=== PATIENT | female | born 1955 | race Two or more races ===

== ENCOUNTER 2024-08-10 11:01 | Inpatient (IN) | payer MEDICARE, OTHER ==
[~2024-08-10] VITALS: Ht 157.5 cm; Wt 73.1 kg
--- NOTE | 2024-08-10 11:13 | ECG ---
[facility] Test Date: 2024-08-10 Test Time: 11:11:39 Pat Name: PRINCE WRIGHT Department: ER Room: 0272T Gender: F Engineer Third Assistant: PATRICIA : 1955 Requested By: CECE JAQUEZ Order Number: [id number] Reading MD: Lefty Lee Measurements Intervals [place] Rate: 71 P: 31 CT: 156 QRS: 19 QRSD: 87 T: 6 QT: 394 QTc: 429 Interpretive Statements Sinus rhythm Probable anteroseptal infarct, old Borderline T abnormalities, inferior leads Baseline wander in lead(s) II,III,aVR,aVL,aVF Electronically Signed On 08-16-2024 16:53:12 PST by Lefty Lee Please click the below link to view image of tracing.
[2024-08-10 11:36] LABS: Basophils # (auto) 0.1 10 ^3/uL (0-0.2); Basophils % (auto) 0.8 % (0.0-2.0); Eosinophils # (auto) 0 10 ^3/uL (0-0.8); Eosinophils % (auto) 0.3 % (0.0-7.0); Hematocrit 40.8 % (36.0-46.0); Hemoglobin 13.6 g/dL (12.2-16.2); Lymphocytes % (auto) 8.8 % (10.0-50.0); Mean Corpuscular Hemoglobin 29.3 pg (28.0-32.0); Mean Corpuscular Hgb Conc. 33.3 g/dL (32.0-36.0); Mean Corpuscular Volume 87.8 fL (80.0-100.0); Monocytes # (auto) 0.3 10 ^3/uL (0-1.3); Monocytes % (auto) 2.7 % (0.0-12.0); Neutrophils # (auto) 9.6 10 ^3/uL (1.6-8.6); Neutrophils % (auto) 87.4 % (37.0-80.0); Platelet Count (auto) 288 10^3/uL (140-450); Red Blood Cells 4.65 10^6/uL (4.0-5.20); Red Cell Distribution Width 14.5 % (11.8-14.3)
[2024-08-10 12:25] LABS: Alanine Aminotransferase 30 U/L (7-40); Alkaline Phosphatase 96 U/L (46-116); Anion Gap 9 (5-15); Aspartate Aminotransferase 27 U/L (13-40); BUN/Creatinine Ratio 20.7 (10.0-20.0); Blood Urea Nitrogen 18 mg/dL (9-23); Calcium 9.7 mg/dL (8.7-10.4); Carbon Dioxide 26 mmol/L (20-31); Potassium 4.3 mmol/L (3.5-5.1); Sodium 143 mmol/L (136-145)
[2024-08-10 12:26] LABS: Bilirubin, Total 0.5 mg/dL (0.2-1.0); Total Protein 7.9 g/dL (5.7-8.2)
[2024-08-10 12:35] LABS: Chloride 108 mmol/L (98-107)
[2024-08-10 12:36] LABS: Albumin 4.9 g/dL (3.2-4.8); Glucose 116 mg/dL (74-106)
--- NOTE | 2024-08-10 12:42 | ED.PDOC ---
HPI Comments 69 y.o female presents to the ED via EMS for altered mental status. EMS reports daughter called 911, as the patient has been confused, off balance and having difficulty ambulating and repeating the same sentences for the last 3 days. Normally, the patient is alert and oriented x4. Patient's daughter states today she passed out, was assisted to the ground, and was having nausea and vomiting . On arrival to ED, patient reports a 5 day history of retrosternal chest pain radiating to her left arm. Additionally to this complaint, she also expressing pain to her right shoulder radiating down her arm and RLQ on palpation. She denies any diarrhea or dysuria. Chief Complaint: General Weakness Time Seen by MD: 11:18 Primary Care Provider: UNKNOWN Reviewed Notes: Nurses Notes, Web Content Coordinator Notes, Medications, Allergies Allergies: Coded Allergies: NO KNOWN ALLERGIES (Unverified , 08/10/24) Home Meds Reported Medications Lisinopril (Lisinopril) 20 Mg Tab, 1 TAB PO DAILY 08/10/24 Information Source: Patient, Emergency Med Personnel Mode of Arrival: EMS Severity: Moderate Timing: Days (5) Duration: Since onset Location: Substernal Radiation: Arm (L) Quality: Sharp Onset: At Rest Cardiac Risk Factors: None PE Risk Factors: None History of: MN Modifying Factors: Nothing Associated Signs and Symptoms: SOB Past Medical History PAST MEDICAL HISTORY: CVA, HTN, MN Surgical History: Unobtainable 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: 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 History Family History Family History: Reviewed,noncontributory to illness Social History Smoker: Non-Smoker Alcohol: Denies ETOH Use Drugs: Denies Drug Use Lives In: Home Constitutional: denies: chills, diaphoresis, fatigue, fever, malaise, sweats, weakness, others EENTM: denies: blurred vision, double vision, ear bleeding, ear discharge, ear drainage, ear pain, ear ringing, eye pain, eye redness, hearing loss, mouth pain, mouth swelling, nasal discharge, nose bleeding, nose congestion, nose pain, photophobia, tearing, throat pain, throat swelling, voice changes, others Respiratory: reports: SOB at rest, shortness of breath, SOB with excertion; denies: cough, hemoptysis, orthopnea, stridor, wheezing, others Cardiovascular: reports: chest pain, left arm pain, others (near syncopals ); denies: dizzy spells, diaphoresis, Dyspnea on exertion, edema, irregular heart beat, lightheadedness, palpitations, PND, syncope Gastrointestinal: reports: abdominal pain; denies: abdomen distended, blood streaked bowels, constipated, diarrhea, dysphagia, difficulty swallowing, he matemesis, melena, nausea, poor appetite, poor fluid intake, rectal bleeding, rectal pain, vomiting, others Genitourinary: denies: abnormal vagina bleeding, burning, dyspareunia, dysuria, flank pain, frequency, hematuria, incontinence, pain, , vagina discharge, urgency, others Neurological: denies: dizziness, fainting, headache, left sided numbness, left sided weakness, numbness, paresthesia, pre-existing deficit, right sided numbness, right sided weakness, seizure, speech problems, tingling, tremors, weakness, others Musculoskeletal: reports: others (right shoulder and arm pain); denies: back pain, gout, joint pain, joint swelling, muscle pain, muscle stiffness, neck pain Integumetry: denies: bruises, change in color, change in hair/nails, dryness, laceration, lesions, lumps, rash, wounds, others Allergic/Immunocompromised: denies: Difficulty Healing, Frequent Infections, Hives, Itching, others Hematologic/Lymphatic: denies: anemia, blood clots, easy bleeding, easy bruising, swollen glands, others Endocrine: denies: excessive hunger, excessive sweating, excessive thirst, excessive urination, flushing, intolerance to cold, intolerance to heat, unexplained weight gain, unexplained weight loss, others Psychiatric: denies: anxiety, bipolar disorder, depression, hopeless, panic disorder, schizophrenia, sleepless, suicidal, others All Other Systems: Reviewed and Negative Physical Exam General Appearance: Mild Distress HEENT: PERRL/EOMI, Other (No facial asymmetry, dry mucous membranes) Neck: Full Range of Motion, Normal Inspection Respiratory: Lungs Clear, No Accessory Muscle Use, No Respiratory Distress, Normal Breath Sounds Cardiovascular: No Edema, No JVD, Regular Rate/Rhythm Breast Exam: Deferred Gastrointestinal: RLQ, Soft, Tenderness Genitalia: Deferred Pelvic: Deferred Rectal: Deferred Extremities: Normal inspection, Normal range of motion, Non-tender, No pedal edema Neurologic: Alert (Oriented x3), Normal Affect, Normal Mood, Other (Moves all extremities. No gross focal deficit.) Cerebellar Function: NOT DONE Reflexes: NOT DONE Skin: Dry, Normal Color, Warm Lymphatic: NOT DONE EKG EKG : Comments Sinus rhythm, rate 71, normal intervals, normal axis, possible old anteroseptal infarct, no ST/T changes. Was a procedure done? Was a procedure done?: No CP Differential Dx Differential Diagnosis: Angina, Anxiety / Panic Attack, Heart Failure, MN, Renal Failure Differential Diagnosis: CHF Differential Diagnosis: Angina, Chest Wall Pain, Cholelithiasis, Costochondritis, Pericarditis, Pneumonia Comment CVA, TIA, infection such as UTI, appendicitis, encephalitis or meningitis, sepsis, among others X-Ray, Labs, Meds, VS Vital Signs Date Time Temp Pulse Resp B/P (MAP) Pulse Ox O2 Delivery O2 Flow Rate FiO2 08/10/24 14:01 72 16 166/94 08/10/24 13:51 97.5 72 17 166/94 (118) 99 97.5 08/10/24 13:49 72 17 99 Room Air* 0 21 08/10/24 13:27 98 18 151/76 08/10/24 11:11 71 08/10/24 11:01 97.9 78 18 147/89 (108) 99 Lab Test 08/10/24 13:09 08/10/24 11:24 08/10/24 11:23 08/10/24 11:11 Range/Units Troponin I High Sensitivity < 3 L < 3 L </=34 ng/L Lipase 83 H 12-53 U/L Sodium Level 143 136-145 mmol/L Potassium Level 4.3 3.5-5.1 mmol/L Chloride Level 108 H 98-107 mmol/L Carbon Dioxide Level 26 20-31 mmol/L Anion Gap 9 5-15 Blood Urea Nitrogen 18 9-23 mg/dL Creatinine 0.87 0.550-1.02 mg/dL Glomerular Filtration Rate Calc 72 >90 mL/min BUN/Creatinine Ratio 20.7 H 10.0-20.0 Serum Glucose 116 H 74-106 mg/dL Calcium Level 9.7 8.7-10.4 mg/dL Total Bilirubin 0.5 0.2-1.0 mg/dL Aspartate Amino Transferase (AST) 27 13-40 U/L Alanine Aminotransferase (ALT) 30 7-40 U/L Alkaline Phosphatase 96 46-116 U/L B-Type Natriuretic Peptide 3.01 0-100 pg/mL Total Protein 7.9 5.7-8.2 g/dL Albumin 4.9 H 3.2-4.8 g/dL White Blood Count 11.0 H 4.4-10.8 10^3/uL Red Blood Count 4.65 4.0-5.20 10^6/uL Hemoglobin 13.6 12.2-16.2 g/dL Hematocrit 40.8 36.0-46.0 % Mean Corpuscular Volume 87.8 80.0-100.0 fL Mean Corpuscular Hemoglobin 29.3 28.0-32.0 pg Mean Corpuscular Hemoglobin Concent 33.3 32.0-36.0 g/dL Red Cell Distribution Width 14.5 H 11.8-14.3 % Platelet Count 288 140-450 10^3/uL Mean Platelet Volume 7.8 6.9-10.8 fL Neutrophils (%) (Auto) 87.4 H 37.0-80.0 % Lymphocytes (%) (Auto) 8.8 L 10.0-50.0 % Monocytes (%) (Auto) 2.7 0.0-12.0 % Eosinophils (%) (Auto) 0.3 0.0-7.0 % Basophils (%) (Auto) 0.8 0.0-2.0 % Neutrophils # (Auto) 9.6 H 1.6-8.6 10 ^3/uL Lymphocytes # (Auto) 1.0 0.4-5.4 10 ^3/uL Monocytes # (Auto) 0.3 0-1.3 10 ^3/uL Eosinophils # (Auto) 0 0-0.8 10 ^3/uL Basophils # (Auto) 0.1 0-0.2 10 ^3/uL Nucleated Red Blood Cells 0.0 % Current Medications Medications (Trade) Dose Ordered Sig/Daphne Route Start Time Stop Time Status Last Admin Sodium Chloride 1,000 ml @ 1,000 mls/hr Q1H ONCE IV 08/10/24 11:30 08/10/24 12:29 DC 08/10/24 13:28 Morphine Sulfate 4 mg ONCE ONCE IV 08/10/24 11:30 08/10/24 11:31 DC 08/10/24 13:27 Ondansetron HCl (Zofran) 4 mg ONCE ONCE IV 08/10/24 11:30 08/10/24 11:31 DC 08/10/24 13:26 [place] [address] Ph: [phone] DIAGNOSTIC IMAGING Diagnostic Imaging Report : [id number] Signed PATIENT: AMIE PARKCT: [id number] UNIT: [id number] : 1955 LOC: ER ROOM / BED: / AGE / SEX: 69 / F ADM STATUS: REG ER SERVICE 22 ORDERING PHYSICIAN: VESNA OZUNA MD PROCEDURE(s): CXRP - CHEST PORTABLE REASON: cp ORDER NUMBER(s): [id number], ACCESSION NUMBER(s): [id number] EXAM: XY CHEST PORTABLE HISTORY: cp COMPARISON: None TECHNIQUE: Portable AP view of the chest was performed. FINDINGS: No pneumothorax, consolidative infiltrates, or pulmonary edema. The heart is not enlarged. IMPRESSION: No acute intrathoracic process. ATED BY: WILLIAMS FLORES MD DICTATED DATE/TIME: 08/10/241244 SIGNED BY: WILLIAMS FLORES MD SIGNED DATE/TIME: 08/10/241244 CC: [place] [address] Ph: [phone] DIAGNOSTIC IMAGING Diagnostic Imaging Report : [id number] Signed PATIENT: AMIE PARKCT: [id number] UNIT: [id number] : 1955 LOC: ER ROOM / BED: / AGE / SEX: 69 / F ADM STATUS: REG ER SERVICE 22 ORDERING PHYSICIAN: VESNA OZUNA MD PROCEDURE(s): HWOCT - HEAD WITHOUT CONTRAST REASON: dizzy, off balance ORDER NUMBER(s): [id number], ACCESSION NUMBER(s): [id number] EXAM: CT HEAD WITHOUT CONTRAST INDICATION: dizzy, off balance TECHNIQUE: CT of the head without intravenous contrast. Radiation Dose Information: CT Dose: CTDI volume is 52.39 mGy. Dose-length product is 839.92 mGy*cm The dose indicators for CT are the volume Computed Tomography (CT) Dose Index (CTDIvol) and the Dose Length Product (DLP), and are measured in units of mGy and mGy-cm, respectively. These indicators are not patient dose, but values generated from the CT scanner acquisition factors. The report includes radiation exposure data for exposures received during this examination. COMPARISON: None FINDINGS: There is no evidence of acute intracranial hemorrhage, extra-axial collection, mass effect, midline shift, herniation or hydrocephalus. There is a round 7 mm extra-axial calcified focus along the right parietal convexity (series 2, image 37) with no associated edema in the underlying brain. The ventricles, sulci and cisterns are age appropriate. Cavum septum pellucidum et vergae, a normal variant. The fuentes-white differentiation is intact. Mild scattered mucosal thickening in the paranasal sinuses. The mastoids are clear. The surrounding soft tissues and osseous structures are unremarkable. IMPRESSION: No evidence of acute intracranial abnormalities. Small round 7 mm extra-axial calcification along the right parietal convexity. This may represent a small calcified meningioma. No evidence of edema in the underlying brain. ATED BY: FOREST VILLASEÑOR DO DICTATED DATE/TIME: 08/10/24 1307 SIGNED BY: FOREST VILLASEÑOR DO SIGNED DATE/TIME: 08/10/24 1307 CC: [place] [address] Ph: [phone] DIAGNOSTIC IMAGING Diagnostic Imaging Report : [id number] Signed PATIENT: AMIE PARKCT: [id number] UNIT: [id number] : 1955 LOC: ER ROOM / BED: / AGE / SEX: 69 / F ADM STATUS: REG ER SERVICE 1123 ORDERING PHYSICIAN: VESNA OZUNA MD PROCEDURE(s): ABPL - CT AB PEL WO CON-NO ORAL OR IV REASON: rlq pain n/v ORDER NUMBER(s): [id number], ACCESSION NUMBER(s): [id number] Procedure: CT CT AB PEL WO CON-NO ORAL OR IV 08/10/2024 12:17 PM Indication: rlq pain n/v Comparison Study: None Technique: Axial images were obtained and reformatted in coronal and sagittal planes. All CT scans at this medical facility are performed using dose modulation techniques as appropriate to a performed exam including the following: Automated exposure control was utilized; adjustment of the MA and/or KV according to patient size; and use of iterative reconstruction technique. CT Dose: CTDI volume is 9.43 mGy. Dose-length product is 473.61 mGy*cm FINDINGS: Lower Chest: Unremarkable. Hepatobiliary: Unremarkable. Spleen: Unremarkable. Pancreas: Unremarkable. Adrenal Glands: Unremarkable. tract: The kidneys are normal in size bilaterally without hydronephrosis or nephrolithiasis. The urinary bladder is unremarkable. GI tract: The stomach is grossly normal in appearance. No evidence of small bowel obstruction. Scattered colonic diverticula are noted without evidence of diverticulitis. The appendix is normal. Lymphatics: No mesenteric, retroperitoneal or periportal lymphadenopathy. Vasculature: The abdominal aorta is normal in in caliber. Pelvic Organs: Unremarkable Bones/soft tissues: No acute abnormality. Other: None. IMPRESSION: 1. No CT evidence for acute intra-abdominal or intrapelvic process. 2. Scattered colonic diverticula without diverticulitis. ATED BY: MARCIA CONTRERAS MD DICTATED DATE/TIME: 08/10/24 1347 SIGNED BY: MRACIA CONTRERAS MD SIGNED DATE/TIME: 08/10/24 1347 CC: X-Ray, Labs, Meds, VS Comment 69-year-old female with a history of CVA, mi and hypertension presenting with altered mental status, syncope, nausea, vomiting, chest pain and right lower quadrant pain Vitals remarkable for BP 147/89 Exam remarkable for right lower quadrant tenderness to palpation Rhythm strip independently interpreted by me: Sinus rhythm, rate 78, no ectopy. CT head IMPRESSION: No evidence of acute intracranial abnormalities. Small round 7 mm extra-axial calcification along the right parietal convexity. This may represent a small calcified meningioma. No evidence of edema in the underlying brain. Chest x-ray IMPRESSION: No acute intrathoracic process. CT abdomen and pelvis IMPRESSION: 1. No CT evidence for acute intra-abdominal or intrapelvic process. 2. Scattered colonic diverticula without diverticulitis. CBC remarkable for WBC 11, , BNP and troponins unremarkable, lipase elevated at 83, UA pending Patient treated with the following in the ED: 1 L 0.9 normal saline IV bolus, morphine 4 mg IV, Zofran 4 mg IV Plan is to admit the patient for neurology, Cardiology and GI evaluation Time of 1ST Reevaluation: 12:36 Reevaluation 1ST: Unchanged Patient Education/Counseling: Diagnosis, Treatment, Prognosis Family Education/Counseling: No Family Present Departure 1 Departure Time of Disposition: 16:00 Impression: Primary Impression: Metabolic encephalopathy Additional Impression: Acute pancreatitis Qualified Codes: K85.90 - Acute pancreatitis without necrosis or infection, unspecified Disposition: ADMITTED INPATIENT Admit to: Tele Condition: Guarded Critical Care Note Critical Care Time?: No Stability Stability form required: No Heart Score Heart Score: Heart Score Response (Comments) Value History Moderate Suspicious 1 EKG Normal 0 Age >65 2 Risk Factors >3 or Hx ASHD 2 Troponin Normal limit 0 Total 5 I personally scribed for VESNA OZUNA MD ([email or web address]) on 08/10/24 at 12:42. Electronically submitted by Pamela Duong ([facility]). I personally scribed for VESNA OZUNA MD ([email or web address]) on 08/10/24 at 13:06. Electronically submitted by Pamela Duong ([facility]). I personally scribed for VESNA OZUNA MD ([email or web address]) on 08/10/24 at 15:11. Electronically submitted by Pamela Duong ([facility]). VESNA OZUNA MD Aug 10, 2024 12:42
--- NOTE | 2024-08-10 12:48 | DVH ---
EXAM: XY CHEST PORTABLE HISTORY: cp COMPARISON: None TECHNIQUE: Portable AP view of the chest was performed. FINDINGS: No pneumothorax, consolidative infiltrates, or pulmonary edema. The heart is not enlarged. IMPRESSION: No acute intrathoracic process.
--- NOTE | 2024-08-10 13:09 | DVH ---
EXAM: CT HEAD WITHOUT CONTRAST INDICATION: dizzy, off balance TECHNIQUE: CT of the head without intravenous contrast. Radiation Dose Information: CT Dose: CTDI volume is 52.39 mGy. Dose-length product is 839.92 mGy*cm The dose indicators for CT are the volume Computed Tomography (CT) Dose Index (CTDIvol) and the Dose Length Product (DLP), and are measured in units of mGy and mGy-cm, respectively. These indicators are not patient dose, but values generated from the CT scanner acquisition factors. The report includes radiation exposure data for exposures received during this examination. COMPARISON: None FINDINGS: There is no evidence of acute intracranial hemorrhage, extra-axial collection, mass effect, midline s hift, herniation or hydrocephalus. There is a round 7 mm extra-axial calcified focus along the right parietal convexity (series 2, image 37) with no associated edema in the underlying brain. The ventricles, sulci and cisterns are age appropriate. Cavum septum pellucidum et vergae, a normal v ariant. The fuentes-white differentiation is intact. Mild scattered mucosal thickening in the paranasal sinuses. The mastoids are clear. The surrounding soft tissues and osseous structures are unremarkable. IMPRESSION: No evidence of acute intracranial abnormalities. Small round 7 mm extra-axial calcification along the right parietal convexity. This may represent a s mall calcified meningioma. No evidence of edema in the underlying brain.
[2024-08-10] MEDS: ONDANSETRON HCL 4 MG/2 ML VIAL IV ONE (13:26)
[2024-08-10] MEDS: MORPHINE SULFATE 4 MG/ML SYR/VIAL IV ONE (13:27)
[2024-08-10] MEDS: SODIUM CHLORIDE 0.9% 1,000 ML IV ONE (13:28)
[2024-08-10 13:49] VITALS: PULSE 72; RESP 17; O2SAT 99
--- NOTE | 2024-08-10 13:50 | DVH ---
Procedure: CT CT AB PEL WO CON-NO ORAL OR IV 08/10/2024 12:17 PM Indication: rlq pain n/v Comparison Study: None Technique: Axial images were obtained and reformatted in coronal and sagittal planes. All CT scans at this medical facility are performed using dose modulation techniques as appropriate t o a performed exam including the following: Automated exposure control was utilized; adjustment of th e MA and/or KV according to patient size; and use of iterative reconstruction technique. CT Dose: CTDI volume is 9.43 mGy. Dose-length product is 473.61 mGy*cm FINDINGS: Lower Chest: Unremarkable. Hepatobiliary: Unremarkable. Spleen: Unremarkable. Pancreas: Unremarkable. Adrenal Glands: Unremarkable. tract: The kidneys are normal in size bilaterally without hydronephrosis or nephrolithiasis. The urinary bladder is unremarkable. GI tract: The stomach is grossly normal in appearance. No evidence of small bowel obstruction. Scatte red colonic diverticula are noted without evidence of diverticulitis. The appendix is normal. Lymphatics: No mesenteric, retroperitoneal or periportal lymphadenopathy. Vasculature: The abdominal aorta is normal in in caliber. Pelvic Organs: Unremarkable Bones/soft tissues: No acute abnormality. Other: None. IMPRESSION: 1. No CT evidence for acute intra-abdominal or intrapelvic process. 2. Scattered colonic diverticula without diverticulitis.
[2024-08-10] MEDS ORDERED: LISI20TA56 PO (15:21)
--- NOTE | 2024-08-10 15:27 | DVHHP2 ---
History of Present Illness Reason for Visit: Generalized weakness History of Present Illness This 69-year-old female presents to the ED via EMS for ALOC. Upon assessment the patient is alert and oriented but somehow poor historian. Medical records obtained from nursing staff who reports the patient is noted to have altered level of consciousness, confusion, and had syncopal episode associated with nausea and vomiting. The patient currently denies chest pain, shortness of breath, or other acute symptoms. Past Medical History As stated in HPI Past Surgical History Denies Family History Reviewed, non-contributory to the management of this case. Past Social History The patient lives at home, denies smoking, alcohol or illicit drugs abuse. Review of Systems Constitutional: Yes: Weakness, Malaise; No: Fever, Chills, Sweats, Other Eyes: No: Pain, Vision change, Conjunctivae inflammation, Eyelid inflammation, Other, Redness ENT: No: Ear pain, Ear discharge, Nose pain, Nose discharge, Nose congestion, Mouth pain, Mouth swelling, Throat pain, Throat swelling, Other Respiratory: No: Cough, Dry, Shortness of breath, SOB with excertion, Wheezing, Hemoptysis, Pleuritic Pain, Sputum, Wheezing, Other Cardiovascular: No: Chest Pain, Palpitations, Orthopnea, Paroxysmal Noc. Dyspnea, Edema, Lt Headedness, Other Gastrointestinal: No: Nausea, Vomiting, Abdominal Pain, Diarrhea, Constipation, Melena, Hematochezia, Other Genitourinary: No Dysuria, No Frequency, No Incontinence, No Hematuria, No Retention, No Other Musculoskeletal: No: other, neck pain, shoulder pain, arm pain, back pain, hand pain, leg pain, foot pain Skin: No: Rash, Lesions, Jaundice, Bruising, Other Neurological: Weakness, Confusion (Syncope), Other; No: Numbness, Incoordination, Change in speech, Seizures Allergies: Coded Allergies: NO KNOWN ALLERGIES (Unverified , 08/10/24) Exam Vital Signs Vital Signs Date Time Temp Pulse Resp B/P (MAP) Pulse Ox O2 Delivery O2 Flow Rate FiO2 08/10/24 14:01 72 16 166/94 08/10/24 13:51 97.5 99 97.5 08/10/24 13:49 Room Air* 0 21 General Appearance: Alert, mild distress HEENT: Atraumatic, PERRLA, EOMI, Mucous membr. moist/pink Respiratory: Clear to auscultation, Normal air movement Cardiovascular: Regular rate, Normal S1 Abdominal: Normal bowel sounds, Soft, No tenderness Extremities: No clubbing, No cyanosis, No edema, Normal pulses Neuro: Normal gait, Sensation intact Labs/Xrays Labs Test 08/10/24 13:09 08/10/24 11:24 08/10/24 11:23 08/10/24 11:11 Range/Units Troponin I High Sensitivity < 3 L </=34 ng/L Lipase 83 H 12-53 U/L Sodium Level 143 136-145 mmol/L Potassium Level 4.3 3.5-5.1 mmol/L Chloride Level 108 H 98-107 mmol/L Carbon Dioxide Level 26 20-31 mmol/L Anion Gap 9 5-15 Blood Urea Nitrogen 18 9-23 mg/dL Creatinine 0.87 0.550-1.02 mg/dL Glomerular Filtration Rate Calc 72 >90 mL/min BUN/Creatinine Ratio 20.7 H 10.0-20.0 Serum Glucose 116 H 74-106 mg/dL Calcium Level 9.7 8.7-10.4 mg/dL Total Bilirubin 0.5 0.2-1.0 mg/dL Aspartate Amino Transferase (AST) 27 13-40 U/L Alanine Aminotransferase (ALT) 30 7-40 U/L Alkaline Phosphatase 96 46-116 U/L B-Type Natriuretic Peptide 3.01 0-100 pg/mL Total Protein 7.9 5.7-8.2 g/dL Albumin 4.9 H 3.2-4.8 g/dL White Blood Count 11.0 H 4.4-10.8 10^3/uL Red Blood Count 4.65 4.0-5.20 10^6/uL Hemoglobin 13.6 12.2-16.2 g/dL Hematocrit 40.8 36.0-46.0 % Mean Corpuscular Volume 87.8 80.0-100.0 fL Mean Corpuscular Hemoglobin 29.3 28.0-32.0 pg Mean Corpuscular Hemoglobin Concent 33.3 32.0-36.0 g/dL Red Cell Distribution Width 14.5 H 11.8-14.3 % Platelet Count 288 140-450 10^3/uL Mean Platelet Volume 7.8 6.9-10.8 fL Neutrophils (%) (Auto) 87.4 H 37.0-80.0 % Lymphocytes (%) (Auto) 8.8 L 10.0-50.0 % Monocytes (%) (Auto) 2.7 0.0-12.0 % Eosinophils (%) (Auto) 0.3 0.0-7.0 % Basophils (%) (Auto) 0.8 0.0-2.0 % Neutrophils # (Auto) 9.6 H 1.6-8.6 10 ^3/uL Lymphocytes # (Auto) 1.0 0.4-5.4 10 ^3/uL Monocytes # (Auto) 0.3 0-1.3 10 ^3/uL Eosinophils # (Auto) 0 0-0.8 10 ^3/uL Basophils # (Auto) 0.1 0-0.2 10 ^3/uL Nucleated Red Blood Cells 0.0 % PROCEDURE(s): HWOCT - HEAD WITHOUT CONTRAST REASON: dizzy, off balance ORDER NUMBER(s): [id number], ACCESSION NUMBER(s): [id number] EXAM: CT HEAD WITHOUT CONTRAST INDICATION: dizzy, off balance TECHNIQUE: CT of the head without intravenous contrast. Radiation Dose Information: CT Dose: CTDI volume is 52.39 mGy. Dose-length product is 839.92 mGy*cm The dose indicators for CT are the volume Computed Tomography (CT) Dose Index (CTDIvol) and the Dose Length Product (DLP), and are measured in units of mGy and mGy-cm, respectively. These indicators are not patient dose, but values generated from the CT scanner acquisition factors. The report includes radiation exposure data for exposures received during this examination. COMPARISON: None FINDINGS: There is no evidence of acute intracranial hemorrhage, extra-axial collection, mass effect, midline shift, herniation or hydrocephalus. There is a round 7 mm extra-axial calcified focus along the right parietal convexity (series 2, image 37) with no associated edema in the underlying brain. The ventricles, sulci and cisterns are age appropriate. Cavum septum pellucidum et vergae, a normal variant. The fuentes-white differentiation is intact. Mild scattered mucosal thickening in the paranasal sinuses. The mastoids are clear. The surrounding soft tissues and osseous structures are unremarkable. IMPRESSION: No evidence of acute intracranial abnormalities. Assessment/Plan Assessment/Plan # acute metabolic encephalopathy, ?sepsis # Possible syncope and collapse # nausea and vomiting # leukocytosis, rule out UTI # generalized weakness Admit to telemetry unit Echocardiogram Monitor on telemetry IV fluid Antiemetics Empiric antibiotic ceftriaxone Blood and urine culture # hypertension Continue with lisinopril Hydralazine prn # hx of CVA Consider neuro consult given history # hx CAD DVT prophylaxis Medical plan discussed with patient and RN Plan discussed with: Patient My Orders Orders - INDER GERONIMO Procedure Category Date Status Time Admit ADMIT 08/10/24 Verified 15:16 Code Status CODE 08/10/24 Verified 15:16 0.9% Ns 1000 Ml PHA 08/10/24 Verified 15:30 Ondansetron Hcl PHA 08/10/24 Verified (Zofran) 15:30 Enoxaparin Sodium PHA 08/11/24 Verified (Lovenox) 10:00 Fall Risk Precautions TREASURE 08/10/[address] 15:16 Complete Blood Count LAB 08/11/24 Verified 04:00 Comprehensive LAB 08/11/24 Verified Metabolic Panel 04:00 Cardiac DIET 08/10/24 Verified Diet-2gna,Lofat,Lochol Dinner Condition: Fair TREASURE 08/10/24 Verified 15:16 Date of Service: Aug 10, 2024 Billing Provider: INDER GERONIMO Common Visit Codes: [id number] INP/OBS CARE (HIGH) INDER GERONIMO Aug 10, 2024 15:27
[2024-08-10] MEDS ORDERED: ONDANSETRON HCL 4 MG/2 ML VIAL IV PRN (15:30)
[2024-08-10] MEDS: SODIUM CHLORIDE 0.9% 1,000 ML IV SCH (15:30)
[2024-08-10] MEDS ORDERED: hydrALAZINE HCL 20 MG/ML VL IV PRN (15:30)
[2024-08-10] MEDS: cefTRIAXone 1GM/50ML D5W 50 ML IV ONE (18:01)
[2024-08-10 19:21] LABS: Urine Bacteria FEW /hpf (None Seen); Urine Blood Negative /uL (Negative); Urine Clarity Clear (Clear); Urine Color Yellow (Yellow); Urine Mucus FEW (None Seen); Urine Protein, UAD Negative (Negative); Urine Specific Gravity 1.026 (1.001-1.035); Urine Squamous Epithelial Cell FEW /hpf (<5); Urine Urobilinogen Normal (Negative); Urine WBC 2 /HPF (0-5)
[2024-08-10 19:45] LABS: Amphetamine Screen, Urine Neg (NEGATIVE); Barbiturate Scree,Urine Neg (NEGATIVE); Benzodiazephine Screen, Urine Neg (NEGATIVE); Cannabinoid Screen, Urine Neg (NEGATIVE); Cocaine Screen, Urine Neg (NEGATIVE); Opiate Scree,Urine Pos (NEGATIVE); Phencyclidine Screen, Urine Neg (NEGATIVE)
[2024-08-10 22:31] VITALS: BP 122/65; PULSE 61; RESP 18; TEMP 98.6; O2SAT 99
[2024-08-11] VITALS (8 sets, daily range): BP systolic 124–155; BP diastolic 55–83; PULSE 56–84; RESP 16–18; TEMP 98.2–98.9; O2SAT 95–99
[2024-08-11] MEDS ORDERED: MORPHINE SULFATE INJ 2 MG/ml SYRG IV PRN (00:45)
[2024-08-11] MEDS: NITROGLYCERIN 0.4 MG SL TAB SL PRN (01:03)
[2024-08-11] MEDS: SODIUM CHLOR 0.9% PF (SALINE LOCK) 10ML VIAL/SYR IV SCH (06:28)
--- NOTE | 2024-08-11 07:28 | ECG ---
[facility] Test Date: 2024-08-11 Test Time: 00:20:22 Pat Name: PRINCE WRIGHT Department: Room: [facility] Gender: F Supervisor Pipelines: cyn : 1955 Requested By: CHARLES CLARK Order Number: [id number] Reading MD: Lefty Lee Measurements Intervals [place] Rate: 59 P: 11 NM: 156 QRS: 22 QRSD: 110 T: 25 QT: 428 QTc: 424 Interpretive Statements Sinus rhythm Probable anteroseptal infarct, old Electronically Signed On 08-12-2024 21:33:41 PST by Lefty Lee Please click the below link to view image of tracing.
[2024-08-11 08:16] LABS: Basophils # (auto) 0 10 ^3/uL (0-0.2); Basophils % (auto) 0.7 % (0.0-2.0); Eosinophils # (auto) 0.2 10 ^3/uL (0-0.8); Eosinophils % (auto) 3.1 % (0.0-7.0); Hematocrit 37.6 % (36.0-46.0); Hemoglobin 12.2 g/dL (12.2-16.2); Lymphocytes # (auto) 1.8 10 ^3/uL (0.4-5.4); Lymphocytes % (auto) 27.7 % (10.0-50.0); Mean Corpuscular Hemoglobin 28.7 pg (28.0-32.0); Mean Corpuscular Hgb Conc. 32.6 g/dL (32.0-36.0); Mean Corpuscular Volume 88.2 fL (80.0-100.0); Monocytes # (auto) 0.4 10 ^3/uL (0-1.3); Monocytes % (auto) 6.1 % (0.0-12.0); Neutrophils # (auto) 4.1 10 ^3/uL (1.6-8.6); Neutrophils % (auto) 62.4 % (37.0-80.0); Nucleated Red Blood Cells % 0.2 %; Platelet Count (auto) 249 10^3/uL (140-450); Red Blood Cells 4.26 10^6/uL (4.0-5.20); Red Cell Distribution Width 14.5 % (11.8-14.3); White Blood Cell 6.6 10^3/uL (4.4-10.8)
[2024-08-11 08:19] LABS: Alanine Aminotransferase 28 U/L (7-40); Alkaline Phosphatase 79 U/L (46-116); Anion Gap 8 (5-15); BUN/Creatinine Ratio 22.1 (10.0-20.0); Blood Urea Nitrogen 17 mg/dL (9-23); Calcium 8.9 mg/dL (8.7-10.4); Carbon Dioxide 24 mmol/L (20-31); Glucose 87 mg/dL (74-106); Potassium 3.6 mmol/L (3.5-5.1); Sodium 141 mmol/L (136-145)
[2024-08-11 08:20] LABS: Albumin 4.2 g/dL (3.2-4.8); Aspartate Aminotransferase 25 U/L (13-40); Bilirubin, Total 0.7 mg/dL (0.2-1.0); Total Protein 6.7 g/dL (5.7-8.2)
[2024-08-11 08:21] LABS: Chloride 109 mmol/L (98-107)
[2024-08-11] MEDS: LISINOPRIL 20 MG TAB PO SCH (09:39)
[2024-08-11] MEDS: cefTRIAXone 1GM/50ML D5W 50 ML IV SCH (09:40)
[2024-08-11] MEDS: ENOXAPARIN SOD 40 MG/0.4 ML SYRINGE SC SCH (09:40)
--- NOTE | 2024-08-11 13:37 | DVHPN2 ---
Subjective 69-year-old female with a history of hypertension and old CVA and history of CAD came with a chief complaint of headache and dizziness and weakness and possible syncope She says she is not able to remember what happened except that she was having dizziness and lightheadedness and headache and then she does not remember happened NS Changes from previous H/P or p: Changes Eyes: No Pain, No Vision change, No Conjunctivae inflammation, No Eyelid inflammation, No Other, No Redness ENT: No Ear pain, No Ear discharge, No Nose pain, No Nose discharge, No Nose congestion, No Mouth pain, No Mouth swelling, No Throat pain, No Throat swelling, No Other Cardiovascular: No Chest Pain, No Palpitations, No Orthopnea, No Paroxysmal Noc. Dyspnea, No Edema, No Lt Headedness, No Other Respiratory: No Cough, No Dry, No Shortness of breath, No SOB with excertion, No Wheezing, No Hemoptysis, No Pleuritic Pain, No Sputum, No Other Gastrointestinal: No Nausea, No Vomiting, No Abdominal Pain, No Diarrhea, No Constipation, No Melena, No Hematochezia, No Other Genitourinary: No Dysuria, No Frequency, No Incontinence, No Hematuria, No Retention, No Other Musculoskeletal: No other, No neck pain, No shoulder pain, No arm pain, No back pain, No hand pain, No leg pain, No foot pain Skin: No Rash, No Lesions, No Jaundice, No Bruising, No Other Objective Vitals Vital Signs Date Time Temp Pulse Resp B/P (MAP) Pulse Ox O2 Delivery O2 Flow Rate FiO2 08/11/24 09:39 126/71 08/11/24 08:42 98.8 56 16 99 98.8 08/10/24 22:31 Room Air* 0 21 Intake/Output Intake and Output 08/11/24 07:00 Intake Total 1100 ml Balance 1100 ml Intake Oral 100 ml IV Total 1000 ml # Voids 1 General Appearance: Alert, Oriented X3, Cooperative, No acute distress Cardiovascular: Regular rate, Normal S1 Abdomen: Normal bowel sounds, No tenderness Extremities: No edema Medications Current Medications Medications Dose Ordered Sig/Daphne Route Start Time Stop Time Status Last Admin Dose Admin Sodium Chloride 1,000 ml @ 60 mls/hr [id number] IV 08/10/24 15:30 08/11/24 09:52 60 MLS/HR Ondansetron HCl 4 mg Q4HP PRN IV 08/10/24 15:30 Enoxaparin Sodium 40 mg DAILY SC 08/11/24 10:00 08/11/24 09:40 40 MG Lisinopril 20 mg DAILY PO 08/11/24 10:00 08/11/24 09:39 20 MG Hydralazine HCl 10 mg Q6HP PRN IV 08/10/24 15:30 Ceftriaxone Sodium 50 ml @ 100 mls/hr DAILY@09 IV 08/11/24 09:00 08/11/24 09:40 100 MLS/HR Nitroglycerin 0.4 mg Q5MINP PRN SL 08/11/24 00:45 08/11/24 01:03 0.4 MG Morphine Sulfate 2 mg Q30M PRN IV 08/11/24 00:45 Sodium Chloride 10 ml Q8HR IV 08/11/24 06:00 08/11/24 06:28 10 ML Laboratory Results Laboratory Tests 08/11/24 07:11 Chemistry Test 08/11/24 07:11 Albumin 4.2 g/dL (3.2-4.8) Calcium Level 8.9 mg/dL (8.7-10.4) Total Protein 6.7 g/dL (5.7-8.2) LFT Test 08/11/24 07:11 Alanine Aminotransferase (ALT) 28 U/L (7-40) Alkaline Phosphatase 79 U/L (46-116) Aspartate Amino Transferase (AST) 25 U/L (13-40) Total Bilirubin 0.7 mg/dL (0.2-1.0) Urinalysis Test 08/10/24 19:10 Urine Color Yellow (Yellow) Urine Clarity Clear (Clear) Urine pH 6.0 (5.0-9.0) Urine Specific [place] 1.026 (1.001-1.035) Urine Protein Negative (Negative) Urine Ketones 1+ (Negative) H Urine Blood Negative /uL (Negative) Urine Nitrite Negative (Negative) Urine Bilirubin Negative (Negative) Urine Urobilinogen Normal mg/dL (Negative) Urine Leukocyte Esterase Negative /uL (Negative) Urine RBC 1 /hpf (0 - 4) Urine Microscopic WBC 2 /HPF (0-5) Urine Squamous Epithelial Cells Few /hpf (<5) Urine Bacteria Few /hpf (None Seen) H Urine Mucus Few (None Seen) Urine Glucose Normal mg/dL (Normal) Microbiology Microbiology Date/Time Source Procedure Growth Status 08/10/24 19:10 Voided Urine Urine Culture - Preliminary Resulted Assessment/Plan Assessment/Plan Syncope Headache Dizziness Hypertension Old CVA History of CAD Meningioma Possible underlying UTI Plan CT scan of the head is negative Chest x-ray is normal Order MRI of the brain no contrast Neurology consult Carotid Doppler Echocardiogram Hydration with IV fluids Rocephin IV Aspirin Full code Advance directives discussed for 18 minute Plan discussed with: Patient My Orders Orders - JAIRON GARCES MD Procedure Category Date Status Time Brain Head Wo Contrast MRI 08/11/24 Verified 13:14 Carotid Duplx W Color US 08/11/24 Verified DOP 13:14 Date of Service: Aug 11, 2024 Billing Provider: JAIRON GARCES MD Common Visit Codes: [id number] INP/OBS CARE(HIGH) Secondary Visit Codes: [id number] CARE PLAN 30 MINUTES JAIRON GARCES MD Aug 11, 2024 13:37
--- NOTE | 2024-08-11 14:42 | DVH ---
Carotid Duplex Date: 08/11/2024 02:12 PM Clinical History: headache Comparison: None Technique: Duplex Doppler evaluation of the extracranial carotid and vertebral arteries including color Doppler and spectral/pulsed waveform analysis was performed. Findings: Velocites and within normal limits. IMPRESSION: No hemodynamically significant stenosis noted in the right carotid system. No hemodynamically significant stenosis noted in the left carotid system. Reference: Radiology 2003; 229:340-346
--- NOTE | 2024-08-11 15:24 | DVH ---
EXAMINATION: MRI BRAIN HEAD WO CONTRAST INDICATION: headache COMPARISON: CT head 08/10/2024 TECHNIQUE: Multiplanar, multisequence magnetic resonance imaging of the brain was performed without t he use of intravenous contrast. FINDINGS: There is no restricted diffusion. The fuentes and white matter signal is age appropriate. Again seen is a small extra-axial calcified nodule along the right lateral frontal lobe probably small calcified me ningioma. There is no evidence of hemorrhage, mass effect or midline shift. There is no hydrocephalus or extra-axial fluid collection. The visualized intracranial vasculature demonstrates appropriate fl ow-voids. The sagittal midline structures appear unremarkable. The craniocervical junction is within normal limits. The calvarium demonstrates normal marrow signal. The paranasal sinuses and mastoid air cells are clear. IMPRESSION: 1. There is no acute intracranial process. HS:Y
[2024-08-11] MEDS: ASPirin 81 mg TAB PO ONE (17:03)
[2024-08-11] MEDS: ACETAMINOPHEN 325 MG TAB PO PRN (17:04)
[2024-08-12 01:00] VITALS: BP 118/72; PULSE 65; RESP 18; TEMP 98.2; O2SAT 95
[2024-08-12 05:00] VITALS: BP 107/71; PULSE 66; RESP 18; TEMP 98.1; O2SAT 98
[2024-08-12 08:00] VITALS: PULSE 72; PULSE 76; RESP 18
[2024-08-12 08:05] LABS: Triglycerides 103 mg/dL (< 150)
[2024-08-12 08:07] LABS: Cholesterol 190 mg/dL (< 200); HDL Cholesterol 40 mg/dL (40-59)
[2024-08-12 08:09] LABS: LDL Cholesterol 137 mg/dL (< 100)
[2024-08-12 08:31] VITALS: BP 130/73; PULSE 72; RESP 18; TEMP 97.9; O2SAT 96
[2024-08-12] MEDS: ASPirin 81 mg TAB PO SCH (09:22)
[2024-08-12] MEDS: IBUPROFEN 800 MG TAB PO ONE (12:00)
--- NOTE | 2024-08-12 12:03 | DVHDS2 ---
Discharge Summary Date of Admission Aug 10, 2024 at 15:16 Date of Discharge: Aug 12, 2024 Labs/Diagnostic Data: Laboratory Results Test 08/12/24 06:02 08/11/24 07:11 08/10/24 19:10 08/10/24 13:09 Triglycerides Level 103 mg/dL (< 150) Cholesterol Level 190 mg/dL (< 200) LDL Cholesterol 137 mg/dL (< 100) HDL Cholesterol 40 mg/dL (40-59) Thyroid Stimulating Hormone (TSH) 1.70 uIU/mL (0.55-4.78) White Blood Count 6.6 10^3/uL (4.4-10.8) Red Blood Count 4.26 10^6/uL (4.0-5.20) Hemoglobin 12.2 g/dL (12.2-16.2) Hematocrit 37.6 % (36.0-46.0) Mean Corpuscular Volume 88.2 fL (80.0-100.0) Mean Corpuscular Hemoglobin 28.7 pg (28.0-32.0) Mean Corpuscular Hemoglobin Concent 32.6 g/dL (32.0-36.0) Red Cell Distribution Width 14.5 % (11.8-14.3) Platelet Count 249 10^3/uL (140-450) Mean Platelet Volume 8.3 fL (6.9-10.8) Neutrophils (%) (Auto) 62.4 % (37.0-80.0) Lymphocytes (%) (Auto) 27.7 % (10.0-50.0) Monocytes (%) (Auto) 6.1 % (0.0-12.0) Eosinophils (%) (Auto) 3.1 % (0.0-7.0) Basophils (%) (Auto) 0.7 % (0.0-2.0) Neutrophils # (Auto) 4.1 10 ^3/uL (1.6-8.6) Lymphocytes # (Auto) 1.8 10 ^3/uL (0.4-5.4) Monocytes # (Auto) 0.4 10 ^3/uL (0-1.3) Eosinophils # (Auto) 0.2 10 ^3/uL (0-0.8) Basophils # (Auto) 0 10 ^3/uL (0-0.2) Nucleated Red Blood Cells 0.2 % Sodium Level 141 mmol/L (136-145) Potassium Level 3.6 mmol/L (3.5-5.1) Chloride Level 109 mmol/L (98-107) Carbon Dioxide Level 24 mmol/L (20-31) Anion Gap 8 (5-15) Blood Urea Nitrogen 17 mg/dL (9-23) Creatinine 0.77 mg/dL (0.550-1.02) Glomerular Filtration Rate Calc 83 mL/min (>90) BUN/Creatinine Ratio 22.1 (10.0-20.0) Serum Glucose 87 mg/dL (74-106) Calcium Level 8.9 mg/dL (8.7-10.4) Total Bilirubin 0.7 mg/dL (0.2-1.0) Aspartate Amino Transferase (AST) 25 U/L (13-40) Alanine Aminotransferase (ALT) 28 U/L (7-40) Alkaline Phosphatase 79 U/L (46-116) Total Protein 6.7 g/dL (5.7-8.2) Albumin 4.2 g/dL (3.2-4.8) Urine Color Yellow (Yellow) Urine Clarity Clear (Clear) Urine pH 6.0 (5.0-9.0) Urine Specific [place] 1.026 (1.001-1.035) Urine Protein Negative (Negative) Urine Ketones 1+ (Negative) Urine Blood Negative /uL (Negative) Urine Nitrite Negative (Negative) Urine Bilirubin Negative (Negative) Urine Urobilinogen Normal mg/dL (Negative) Urine Leukocyte Esterase Negative /uL (Negative) Urine RBC 1 /hpf (0 - 4) Urine Microscopic WBC 2 /HPF (0-5) Urine Squamous Epithelial Cells Few /hpf (<5) Urine Bacteria Few /hpf (None Seen) Urine Mucus Few (None Seen) Urine Glucose Normal mg/dL (Normal) Urine Opiates Screen Pos (NEGATIVE) Urine Fentanyl Screen Neg (NEGATIVE) Urine Barbiturates Screen Neg (NEGATIVE) Urine Phencyclidine Screen Neg (NEGATIVE) Urine Amphetamines Screen Neg (NEGATIVE) Urine Benzodiazepines Screen Neg (NEGATIVE) Urine Cocaine Screen Neg (NEGATIVE) Urine Cannabinoids Screen Neg (NEGATIVE) Troponin I High Sensitivity < 3 ng/L (</=34) Test 08/10/24 11:24 08/10/24 11:23 Lipase 83 U/L (12-53) B-Type Natriuretic Peptide 3.01 pg/mL (0-100) Other Laboratory Tests 08/11/24 07:11 Brief Hx & Hospital Course: Final diagnoses: Headache and dizziness due to muscular spasm Right-sided cervical and right shoulder muscular spasm Atypical chest pain, musculoskeletal in origin Hypertension Benign meningioma 69-year-old female who was admitted for headache and dizziness Workup is negative including CT scan of the head and an MRI of the brain and carotid ultrasound and echocardiogram On examination she has a tender muscles in the right neck and right shoulder area She will be given ibuprofen and a hot pack to her neck muscles She can be discharged home on ibuprofen as needed and the same home medications and follow up with the primary care physician as soon as possible Condition at Discharge: Stable Final Diagnosis/Problems List Headache and dizziness due to muscular spasm Right-sided cervical and right shoulder muscular spasm Atypical chest pain, musculoskeletal in origin Hypertension Benign meningioma Discharge Disposition: Home SNF Discharge Will this Physician continue t: No Discharge Statement: "Patient was advised to return to the ER or call 911 if any headaches, dizziness, shortness of breath, chest pain, abdominal pain, bleeding, fevers, or worsening of medical condition. Patient was counseled about treatment plan, medications, possible side effects, patientverbalized understanding. All questions were answered to the best of my ability. This discharge took greater then 30 minutes in planning, reviewing documentation, counseling the patient, and discussing with other team members." ASSESSMENT ASSESSMENT Assessment Date of Service: Aug 12, 2024 Billing Provider: JAIRON GARCES MD Common Visit Codes: [id number] DISCH DAY >30min JAIRON GARCES MD Aug 12, 2024 12:03
[2024-08-12] MEDS ORDERED: IBUP1TAB5 PO (12:04)
[2024-08-12 13:00] VITALS: BP 111/56; PULSE 50; RESP 16; TEMP 98; O2SAT 98
[2024-08-12 15:19] VITALS: BP 130/73
--- NOTE | 2024-08-12 20:52 | DVHSR ---
APPROVED REPORT EXAM: Two-dimensional and M-mode echocardiogram with Doppler and color Doppler. Blood Pressure: 124/83 mmHg INDICATION Syncope RISK FACTORS Height: 62, Weight: 162 DIMENSIONS LVDd3.8 (3.8-5.7cm)LA (2D)3.7 (1.9-4.0cm)Aortic Root3.0 (2.0-3.7cm) LVDs2.5 (2.5-4.0cm)LA (MM) (1.9-4.0cm)Aortic Cusp Exc1.8 (1.5-2.0cm) EF (%) 65.0 (55-70%)Rt. Atrium3.3 (1.9-4.0cm)Asc. Aorta cm IVSd1.1 (0.7-1.1cm)RV (D) (1.8-2.4cm) PWd1.1 (0.7-1.1cm) Mitral Valve MitralMitral Stenosis E wave0.98m/sMV Mean GR.mmHg A wave0.84m/sMV Peak GR.79mmHg E/A ratio1.22D MVAcm2 DECEL [id number] 1/2 [id number] IVRTmsDop MVA3.75cm2 Aortic Valve Aortic ValveAortic Stenosis V11.46m/Theresa Mean GR.5mmHg V21.61m/Theresa Peak GR.10mmHg LVOT Diameter1.9 (1.8-2.4cm)Doppler AVA2.57cm2 Pulmonic Valve V20.86m/s Tricuspid Valve TR Velocity2.72m/s [id number] Other Information Technically limited study due to body habitus. Conclusion Technically a good study, Sinus rhythm. Normal chamber sizes. Normal valves EF normal at 60% with normal LV function Mild MR and Mild TR Small pericardial fat pad. No masses or vegetations.
== END 2024-08-12 16:50 | disposition home or self-care (01) | DRG 871 ==
LOC: EDBD 11:01 → ER 11:01 → OVERFLOW 15:16 → TELE-WESTW 22:15
PROVIDERS: ADMIT Internal Medicine Geriatric Medicine; ATTEND Internal Medicine Geriatric Medicine
DX: A41.9 Sepsis, unspecified organism (principal); G93.41 Metabolic encephalopathy; K85.90 Acute pancreatitis without necrosis or infection, unspecified; N30.00 Acute cystitis without hematuria; I25.10 Atherosclerotic heart disease of native coronary artery without angina pectoris; D32.9 Benign neoplasm of meninges, unspecified; R07.89 Other chest pain; M62.838 Other muscle spasm; I10 Essential (primary) hypertension; Z86.73 Personal history of transient ischemic attack (TIA), and cerebral infarction without residual deficits
CPT/HCPCS: 36415; 70450; 70551; 71045; 74176; 80053; 80061; 80307; 81001; 83690; 83880; 84443; 84484; 85025; 87040; 87086; 93005; 93306; 93886; G0378; J2405

== ENCOUNTER 2025-05-27 12:22 | Inpatient (IN) | payer MEDICARE ==
[~2025-05-27] VITALS: Ht 157.5 cm; Wt 70.0 kg
[~2025-05-27 12:22] MED LIST: IBUP1TAB5 PO; LISI20TA56 PO
--- NOTE | 2025-05-27 14:17 | ED.PDOC ---
History of Present Illness HPI Comments 69 year old female with PMHx HTN, CVA, HI presents to the ED with a chief complaint of headache onset 3 days. Patient has been experiencing headache, dizziness, blurred vision for the past 3 days. She noticed symptoms worsened with standing, trying to walk. Has been seen in ED in the past for similar symptoms. Denies fever, chills, chest pain, shortness of breath, head injury, LOC, nausea, vomiting, diarrhea. No other symptoms or modifying factors present at this time. Chief Complaint: Headache Time Seen by MD: 14:05 Primary Care Provider: UNKNOWN Reviewed Notes: Nurses Notes, Medications, Allergies Allergies: Coded Allergies: Codeine (Verified Allergy, Unknown, 08/11/24) Home Meds Active Scripts Ibuprofen Micronized (Ibuprofen) 600 Mg Tab, 600 MG PO Q6HP PRN, #30 TAB Prov:JAIRON GARCES MD 08/12/24 Reported Medications Lisinopril (Lisinopril) 20 Mg Tab, 1 TAB PO DAILY 08/10/24 Information Source: Patient Mode of Arrival: Wheelchair Severity: Moderate Timing: Days Duration: Since onset Prehospital treatment: None Past Medical History PAST MEDICAL HISTORY: CVA, HTN, HI Surgical History: Unknown MAST MAKER History: No Pertinent MAST MAKER History Family History Family History: Reviewed,noncontributory to illness Social History Smoker: Non-Smoker Alcohol: Denies ETOH Use Drugs: Denies Drug Use Lives In: Home Constitutional: denies: chills, diaphoresis, fatigue, fever, malaise, sweats, weakness, others EENTM: reports: blurred vision; denies: double vision, ear bleeding, ear discharge, ear drainage, ear pain, ear ringing, eye pain, eye redness, hearing loss, mouth pain, mouth swelling, nasal discharge, nose bleeding, nose congestion, nose pain, photophobia, tearing, throat pain, throat swelling, voice changes, others Respiratory: denies: cough, hemoptysis, orthopnea, SOB at rest, shortness of breath, SOB with excertion, stridor, wheezing, others Cardiovascular: denies: chest pain, dizzy spells, diaphoresis, Dyspnea on exertion, edema, irregular heart beat, left arm pain, lightheadedness, palpitations, PND, syncope, others Gastrointestinal: denies: abdomen distended, abdominal pain, blood streaked bowels, constipated, diarrhea, dysphagia, difficulty swallowing, hematemesis, melena, nausea, poor appetite, poor fluid intake, rectal bleeding, rectal pain, vomiting, others Genitourinary: denies: abnormal vagina bleeding, burning, dyspareunia, dysuria, flank pain, frequency, hematuria, incontinence, pain, , vagina discharge, urgency, others Neurological: reports: dizziness, headache; denies: fainting, left sided numbness, left sided weakness, numbness, paresthesia, pre-existing deficit, right sided numbness, right sided weakness, seizure, speech problems, tingling, tremors, weakness, others Musculoskeletal: denies: back pain, gout, joint pain, joint swelling, muscle pain, muscle stiffness, neck pain, others Integumetry: denies: bruises, change in color, change in hair/nails, dryness, laceration, lesions, lumps, rash, wounds, others Allergic/Immunocompromised: denies: Difficulty Healing, Frequent Infections, Hives, Itching, others Hematologic/Lymphatic: denies: anemia, blood clots, easy bleeding, easy bruising, swollen glands, others Endocrine: denies: excessive hunger, excessive sweating, excessive thirst, excessive urination, flushing, intolerance to cold, intolerance to heat, unexplained weight gain, unexplained weight loss, others Psychiatric: denies: anxiety, bipolar disorder, depression, hopeless, panic disorder, schizophrenia, sleepless, suicidal, others All Other Systems: Reviewed and Negative Physical Exam General Appearance: Moderate Distress HEENT: Normal ENT Inspection, Pharynx Normal, TMs Normal Neck: Full Range of Motion, Non-Tender, Normal, Normal Inspection Respiratory: Chest Non-Tender, Lungs Clear, No Accessory Muscle Use, No Respiratory Distress, Normal Breath Sounds Cardiovascular: No Edema, No JVD, No Murmur, No Gallop, Normal Peripheral Pulses, Regular Rate/Rhythm Breast Exam: Deferred Gastrointestinal: No Organomegaly, Non Tender, No Pulsatile Mass, Normal Bowel Sounds, Soft Genitalia: Deferred Pelvic: Deferred Rectal: Deferred Extremities: No calf tenderness, Normal capillary refill, Normal inspection, Normal range of motion, Non-tender, No pedal edema Musculoskeletal : Apperance: Normal Neurologic: Alert, maintenance controller II-XII nml as Tested, Motor Weakness, Normal Affect, Normal Mood, No Sensory Deficits Cerebellar Function: Normal Reflexes: Normal Skin: Dry, Normal Color, Warm Lymphatic: No Adenopathy Was a procedure done? Was a procedure done?: No Differential Dx Considerations may include: Vertigo, CVA, seizure, generalized weakness, electrolyte imbalance X-Ray, Labs, Meds, VS Vital Signs Date Time Temp Pulse Resp B/P (MAP) Pulse Ox O2 Delivery O2 Flow Rate FiO2 05/27/25 14:51 63 16 100 Room Air 05/27/25 14:51 98.1 63 16 144/90 (108) 100 98.1 05/27/25 12:37 64 05/27/25 12:29 98.1 72 14 137/86 98 98.1 Lab Test 05/27/25 14:15 Range/Units White Blood Count 6.9 4.4-10.8 10^3/uL Red Blood Count 4.41 4.0-5.20 10^6/uL Hemoglobin 12.2 12.2-16.2 g/dL Hematocrit 37.3 36.0-46.0 % Mean Corpuscular Volume 84.7 80.0-100.0 fL Mean Corpuscular Hemoglobin 27.6 L 28.0-32.0 pg Mean Corpuscular Hemoglobin Concent 32.6 32.0-36.0 g/dL Red Cell Distribution Width 15.1 H 11.8-14.3 % Platelet Count 329 140-450 10^3/uL Mean Platelet Volume 8.0 6.9-10.8 fL Neutrophils (%) (Auto) 62.1 37.0-80.0 % Lymphocytes (%) (Auto) 31.1 10.0-50.0 % Monocytes (%) (Auto) 4.8 0.0-12.0 % Eosinophils (%) (Auto) 1.1 0.0-7.0 % Basophils (%) (Auto) 0.9 0.0-2.0 % Neutrophils # (Auto) 4.3 1.6-8.6 10 ^3/uL Lymphocytes # (Auto) 2.1 0.4-5.4 10 ^3/uL Monocytes # (Auto) 0.3 0-1.3 10 ^3/uL Eosinophils # (Auto) 0.1 0-0.8 10 ^3/uL Basophils # (Auto) 0.1 0-0.2 10 ^3/uL Nucleated Red Blood Cells 0.1 % Sodium Level 141 136-145 mmol/L Potassium Level 4.1 3.5-5.1 mmol/L Chloride Level 106 98-107 mmol/L Carbon Dioxide Level 26 20-31 mmol/L Anion Gap 9 5-15 Blood Urea Nitrogen 12 9-23 mg/dL Creatinine 0.77 0.550-1.02 mg/dL Glomerular Filtration Rate Calc 83 >90 mL/min BUN/Creatinine Ratio 15.6 10.0-20.0 Serum Glucose 83 74-106 mg/dL Calcium Level 9.2 8.7-10.4 mg/dL Magnesium Level 2.2 1.6-2.6 mg/dL Current Medications Medications (Trade) Dose Ordered Sig/Daphne Route Start Time Stop Time Status Last Admin Meclizine HCl (Antivert Tablet) 50 mg ONCE ONCE PO 05/27/25 14:45 05/27/25 14:46 DC 05/27/25 14:42 Sodium Chloride 1,000 ml @ 1,000 mls/hr Q1H ONCE IV 05/27/25 14:45 05/27/25 15:44 05/27/25 14:58 The patient's CBC is within normal limits The chemistry panel is within normal limits The patient was given meclizine 50 mg by mouth The patient was given a 1 L bolus of normal saline IV At this time, the patient has a CAT scan of the head that was negative The patient remained symptomatic so the patient is being admitted to the hospitalist The patient understands and agrees with the management. Images Reviewed?: Images reviewed and evaluated by me Time of 1ST Reevaluation: 14:35 Reevaluation 1ST: Unchanged Patient Education/Counseling: Diagnosis, Treatment, Prognosis Family Education/Counseling: No Family Present SEPSIS Sepsis Screen Date sepsis recognized/suspect: May 27, 2025 Time Sepsis recognized/suspect: 1231 Recent Procedure: No On Antibiotic Therapy: No Respiratory Rate >20: No Heart Rate >90: No Temp<36 C (96.8 F) or >38.3 C: No SBP <90 or MAP <65 mmHG: No New Acute Mental Status Change: No Is the patient on CPAP, BIPAP,: No Physician Orders Electrocardigram (05/27/25 13:25) Heplock Iv (05/27/25 13:47) Head Without Contrast (05/27/25 13:47) Sodium Chloride 0.9% (05/27/25 14:45) Vital Signs Date Time Temp Pulse Resp B/P (MAP) Pulse Ox O2 Delivery O2 Flow Rate FiO2 05/27/25 14:51 63 16 100 Room Air 05/27/25 14:51 98.1 63 16 144/90 (108) 100 98.1 05/27/25 12:37 64 05/27/25 12:29 98.1 72 14 137/86 98 98.1 Laboratory Tests Test 05/27/25 14:15 White Blood Count 6.9 10^3/uL (4.4-10.8) Medications Medications Dose Ordered Sig/Daphne Route Start Time Stop Time Status Last Admin Dose Admin Meclizine HCl 50 mg ONCE ONCE PO 05/27/25 14:45 05/27/25 14:46 DC 05/27/25 14:42 Sodium Chloride 1,000 ml @ 1,000 mls/hr Q1H ONCE IV 05/27/25 14:45 05/27/25 15:44 05/27/25 14:58 Departure 1 Departure Time of Disposition: 15:48 Impression: Primary Impression: Autonomic dysfunction Disposition: 09 ADMITTED INPATIENT Admit to: Tele Condition: Fair Critical Care Note Critical Care Time?: No Stability Stability form required: Yes Unstable for transfer: Telemetry monitoring (Telemetry monitoring required), ED Physician Assesment (Clinical assesment) Heart Score Heart Score: Heart Score Response (Comments) Value History N/A 0 EKG N/A 0 Age N/A 0 Risk Factors N/A 0 Troponin N/A 0 Total 0 I personally scribed for JUJU RIBEIRO MD ([email or web address]) on 05/27/25 at 14:16. Electronically submitted by Zena Chanel ([email or web address]). JUJU RIBEIRO MD May 27, 2025 14:16
[2025-05-27 14:22] LABS: Hematocrit 37.3 % (36.0-46.0); Hemoglobin 12.2 g/dL (12.2-16.2); Mean Corpuscular Hemoglobin 27.6 pg (28.0-32.0); Mean Corpuscular Volume 84.7 fL (80.0-100.0); Nucleated Red Blood Cells % 0.1 %
[2025-05-27 14:28] LABS: Chloride 106 mmol/L (98-107); Potassium 4.1 mmol/L (3.5-5.1); Sodium 141 mmol/L (136-145)
[2025-05-27 14:29] LABS: Anion Gap 9 (5-15); Calcium 9.2 mg/dL (8.7-10.4); Carbon Dioxide 26 mmol/L (20-31)
[2025-05-27 14:34] LABS: Glucose 83 mg/dL (74-106)
[2025-05-27 14:35] LABS: BUN/Creatinine Ratio 15.6 (10.0-20.0); Blood Urea Nitrogen 12 mg/dL (9-23); Magnesium 2.2 mg/dL (1.6-2.6)
[2025-05-27] MEDS: MECLIZINE HCL 25 MG TAB PO ONE (14:42)
[2025-05-27] MEDS: SODIUM CHLORIDE 0.9% 1,000 ML IV ONE (14:58)
--- NOTE | 2025-05-27 15:35 | DVH ---
EXAM: CT HEAD WITHOUT CONTRAST INDICATION: lomax COMPARISON: MRI BRAIN HEAD WO CONTRAST on DOS: 08/11/24, CT HEAD WITHOUT CONTRAST on DOS: 08/10/24 TECHNIQUE: CT of the head without intravenous contrast. Radiation Dose Information: CT Dose: CTDI volume is 55 mGy. Dose-length product is 1073 mGy*cm The dose indicators for CT are the volume Computed Tomography (CT) Dose Index (CTDIvol) and the Dose Length Product (DLP), and are measured in units of mGy and mGy-cm, respectively. These indicators are not patient dose, but values generated from the CT scanner acquisition factors. The report includes radiation exposure data for exposures received during this examination. FINDINGS: Scattered hypoattenuation in the periventricular and subcortical white matter, suggestive of chronic microvascular disease. The ventricles and sulci are normal in size and configuration for the patient's age. There is no mass-effect, hemorrhage, midline shift, or abnormal extra-axial fluid collection visible. No calvarial fracture. Cavum septum pellucidum et vergae. Unchanged extra-axial calcification along the right parietal convexity may represent small meningioma. Trace mucosal thickening of the paranasal sinuses. Mastoid air cells are clear. IMPRESSION: No acute intracranial hemorrhage or mass effect.
--- NOTE | 2025-05-27 18:49 | DVHHP2 ---
History of Present Illness History of Present Illness This is a 69-year-old female with past medical history of hypertension and a prior stroke who presents for evaluation of a right-sided hemicranial headache for the past four days. She describes the pain as throbbing and notes worsening when standing or walking. She reports chronic facial asymmetry dating back to 1986 with episodes she calls facial paralysis, and on exam today the left side of the face pulls downward when she smiles, consistent with her baseline. She also reports dizziness and generalized weakness but denies vision loss, fever, n venkat stiffness, or new focal deficits. Head CT was normal except for a small calcification over the right parietal convexity, likely a tiny meningioma. Labs were unremarkable. MRI was ordered due to chronic facial palsy and headache with positional worsening. She reports a possible IN in the past but is a poor historian. She was restarted on lisinopril 10 mg for elevated blood pressure. PMHx Hypertension, prior stroke, unclear history of possible myocardial infarction. PSHx None. Allergies Codeine. Social History No tobacco use. No alcohol use. Lives independently. ROS Negative except as noted in HPI. Review of Systems Allergies: Coded Allergies: Codeine (Verified Allergy, Unknown, 08/11/24) Medications Current Medications Medications Dose Ordered Sig/Daphne Route Start Time Stop Time Status Last Admin Dose Admin Lisinopril 10 mg DAILY PO 05/28/25 10:00 Meclizine HCl 25 mg Q8HPRN PRN PO 05/27/25 23:00 Exam Vital Signs Vital Signs Date Time Temp Pulse Resp B/P (MAP) Pulse Ox O2 Delivery O2 Flow Rate FiO2 05/27/25 14:51 63 16 100 Room Air 05/27/25 14:51 98.1 144/90 (108) 98.1 Exam General: Alert, no acute distress. Vital signs: Mild hypertension, afebrile. HEENT: No meningismus. CV: Regular rhythm, no murmurs. Resp: Clear to auscultation bilaterally. Abd: Soft, non-tender, nondistended. Ext: No edema. Neuro: Alert and oriented. Cranial nerves intact except for chronic facial asymmetry with left oral commissure depression on smiling, stable per patient. Strength 5/5 in all extremities. Sensation intact. No new focal deficits. Labs/Xrays Labs Test 05/27/25 14:15 Range/Units White Blood Count 6.9 4.4-10.8 10^3/uL Red Blood Count 4.41 4.0-5.20 10^6/uL Hemoglobin 12.2 12.2-16.2 g/dL Hematocrit 37.3 36.0-46.0 % Mean Corpuscular Volume 84.7 80.0-100.0 fL Mean Corpuscular Hemoglobin 27.6 L 28.0-32.0 pg Mean Corpuscular Hemoglobin Concent 32.6 32.0-36.0 g/dL Red Cell Distribution Width 15.1 H 11.8-14.3 % Platelet Count 329 140-450 10^3/uL Mean Platelet Volume 8.0 6.9-10.8 fL Neutrophils (%) (Auto) 62.1 37.0-80.0 % Lymphocytes (%) (Auto) 31.1 10.0-50.0 % Monocytes (%) (Auto) 4.8 0.0-12.0 % Eosinophils (%) (Auto) 1.1 0.0-7.0 % Basophils (%) (Auto) 0.9 0.0-2.0 % Neutrophils # (Auto) 4.3 1.6-8.6 10 ^3/uL Lymphocytes # (Auto) 2.1 0.4-5.4 10 ^3/uL Monocytes # (Auto) 0.3 0-1.3 10 ^3/uL Eosinophils # (Auto) 0.1 0-0.8 10 ^3/uL Basophils # (Auto) 0.1 0-0.2 10 ^3/uL Nucleated Red Blood Cells 0.1 % Sodium Level 141 136-145 mmol/L Potassium Level 4.1 3.5-5.1 mmol/L Chloride Level 106 98-107 mmol/L Carbon Dioxide Level 26 20-31 mmol/L Anion Gap 9 5-15 Blood Urea Nitrogen 12 9-23 mg/dL Creatinine 0.77 0.550-1.02 mg/dL Glomerular Filtration Rate Calc 83 >90 mL/min BUN/Creatinine Ratio 15.6 10.0-20.0 Serum Glucose 83 74-106 mg/dL Calcium Level 9.2 8.7-10.4 mg/dL Magnesium Level 2.2 1.6-2.6 mg/dL SEPSIS Sepsis Screen Date sepsis recognized/suspect: May 27, 2025 Time Sepsis recognized/suspect: 1231 Recent Procedure: No On Antibiotic Therapy: No Respiratory Rate >20: No Heart Rate >90: No Temp<36 C (96.8 F) or >38.3 C: No SBP <90 or MAP <65 mmHG: No New Acute Mental Status Change: No Is the patient on CPAP, BIPAP,: No Physician Orders Electrocardigram (05/27/25 13:25) Heplock Iv (05/27/25 13:47) Head Without Contrast (05/27/25 13:47) Admit (05/27/25 17:19) Oxygen By Nasal Cannula (05/27/25 17:19) Stat Ekg For Chest Pain (05/27/25 17:19) Notify Md Of Changes From Base (05/27/25 17:19) [address] Service For 24 Hours (05/27/25 17:19) Emergency Dysrhythmia Protocol (05/27/25 17:19) Rhythm Strips Once Every Shift (05/27/25 17:19) Lisinopril Tablet (Zestril Tablet) (05/28/25 10:00) Brain Head Wo Contrast (05/27/25 18:07) Meclizine Tablet (Antivert Tablet) (05/27/25 23:00) Cardiac Diet-2gna,Lofat,Lochol (05/27/25 Dinner) Vital Signs Date Time Temp Pulse Resp B/P (MAP) Pulse Ox O2 Delivery O2 Flow Rate FiO2 05/27/25 14:51 63 16 100 Room Air 05/27/25 14:51 98.1 63 16 144/90 (108) 100 98.1 05/27/25 12:37 64 05/27/25 12:29 98.1 72 14 137/86 98 98.1 Laboratory Tests Test 05/27/25 14:15 White Blood Count 6.9 10^3/uL (4.4-10.8) Medications Medications Dose Ordered Sig/Daphne Route Start Time Stop Time Status Last Admin Dose Admin Meclizine HCl 50 mg ONCE ONCE PO 05/27/25 14:45 05/27/25 14:46 DC 05/27/25 14:42 50 MG Sodium Chloride 1,000 ml @ 1,000 mls/hr Q1H ONCE IV 05/27/25 14:45 05/27/25 15:44 DC 05/27/25 14:58 1,000 MLS/HR Assessment/Plan Assessment/Plan #Rule out stroke # Acute intractable headache Clinical features, normal CT, and stable chronic neurologic findings support a primary headache syndrome. MRI pending to exclude secondary causes; pain meds and trigger avoidance. # Essential hypertension BP elevated on admission, consistent with known hypertension. Restarted lisinopril 10 mg; monitor pressures and adjust therapy as needed. # Prior cerebrovascular accident Remote stroke history without new deficits. MRI pursued due to vascular risk factors and headache with positional worsening; continue neurologic monitoring, ASA and statin # Possible small parietal meningioma CT shows a tiny calcified lesion in the right parietal convexity consistent with a benign meningioma. MRI with contrast will further characterize; outpatient neurosurgical follow-up if indicated. # Uncertain history of myocardial infarction Patient describes a possible IN but details are unreliable and unconfirmed. No active cardiac symptoms; recommend outpatient cardiology review for records, risk stratification, and further evaluation. Case discussed with Dr Roca Full code Plan discussed with: Patient, Other (rn) My Orders Orders - JUANITA FRITZ Procedure Category Date Status Time Admit ADMIT 05/27/25 Transmitted 17:19 Oxygen By Nasal RT 05/27/25 Transmitted Cannula 17:19 Stat Ekg For Chest [facility] 05/27/25 In Process Pain 17:19 Notify Of Changes [facility] 05/27/25 In Process From Base 17:[address] Service For [facility] 05/27/25 In Process 24 Hours 17:19 Emergency Dysrhythmia [facility] 05/27/25 In Process Protocol 17:19 Rhythm Strips Once [facility] 05/27/25 In Process Every Shift 17:19 Lisinopril Tablet PHA 05/28/25 In Process (Zestril Tablet) 10:00 Brain Head Wo Contrast MRI 05/27/25 Logged 18:07 Meclizine Tablet PHA 05/27/25 In Process (Antivert Tablet) 23:00 Cardiac DIET 05/27/25 Transmitted Diet-2gna,Lofat,Lochol Dinner Date of Service: May 27, 2025 Billing Provider: JAIRON ROCA MD Common Visit Codes: [id number] INP/OBS CARE (HIGH) Secondary Visit Codes: [id number] CARE PLAN 30 MINUTES JUANITA FRITZ May 27, 2025 18:49
[2025-05-27] MEDS ORDERED: ACETAMINOPHEN 325 MG TAB PO PRN (19:00)
[2025-05-27 19:07] LABS: Triglycerides 95 mg/dL (< 150)
[2025-05-27 19:09] LABS: HDL Cholesterol 52 mg/dL (40-59)
[2025-05-27 19:26] LABS: Cholesterol 217 mg/dL (< 200)
[2025-05-27] MEDS: ATORVASTATIN 20 MG TAB PO SCH (22:03)
[2025-05-28] MEDS: MECLIZINE HCL 25 MG TAB PO PRN (00:45)
[2025-05-28 01:00] VITALS: BP 141/67; PULSE 68; RESP 16; TEMP 98.6; O2SAT 98
[2025-05-28 02:14] VITALS: PULSE 66; RESP 16; O2SAT 96
[2025-05-28 05:00] VITALS: BP 135/59; PULSE 70; RESP 14; TEMP 98.3; O2SAT 97
[2025-05-28] MEDS: KETOROLAC TROMETH 30 MG/ML 1ML VIAL IV PRN (05:03)
[2025-05-28 06:43] LABS: Potassium 3.9 mmol/L (3.5-5.1); Sodium 143 mmol/L (136-145)
[2025-05-28 06:44] LABS: Anion Gap 10 (5-15); Carbon Dioxide 25 mmol/L (20-31)
[2025-05-28 06:49] LABS: Alkaline Phosphatase 71 U/L (46-116); Calcium 8.4 mg/dL (8.7-10.4); Chloride 108 mmol/L (98-107)
[2025-05-28 06:50] LABS: BUN/Creatinine Ratio 15.6 (10.0-20.0); Blood Urea Nitrogen 17 mg/dL (9-23); Total Protein 6.6 g/dL (5.7-8.2)
[2025-05-28 06:51] LABS: Albumin 3.9 g/dL (3.2-4.8)
[2025-05-28 06:52] LABS: Bilirubin, Total 0.4 mg/dL (0.2-1.0); Glucose 123 mg/dL (74-106)
[2025-05-28 07:04] LABS: Alanine Aminotransferase 16 U/L (7-40)
[2025-05-28 07:12] LABS: Hematocrit 35.0 % (36.0-46.0); Hemoglobin 11.9 g/dL (12.2-16.2); Mean Corpuscular Hemoglobin 28.7 pg (28.0-32.0); Mean Corpuscular Volume 84.4 fL (80.0-100.0); Nucleated Red Blood Cells % 0.0 %
[2025-05-28 08:00] VITALS: PULSE 65; RESP 18; O2SAT 97
[2025-05-28 09:07] VITALS: BP 129/69; PULSE 65; RESP 16; O2SAT 97
--- NOTE | 2025-05-28 09:42 | DVH ---
CLINICAL HISTORY: rule out stroke TECHNIQUE: Routine multiplanar imaging of the brain was performed without gadolinium contrast. COMPARISON: CT HEAD WITHOUT CONTRAST on DOS: 05/27/25, MRI BRAIN HEAD WO CONTRAST on DOS: 08/11/24, CT HEAD WITHOUT CONTRAST on DOS: 08/10/24 FINDINGS: There is no abnormal restricted diffusion to suggest acute infarction. There is a punctate focus of T2 hyperintensity within the left frontal white matter, of doubtful clinical significance. There is no evidence for acute ischemic changes, mass, mass effect, or extra- axial fluid collection. There is no hydrocephalus or midline shift. The cerebral sulci and subarachnoid cisterns are not effaced. The imaged paranasal sinuses are clear. The globes are intact. The midline structures, including the corpus callosum, are unremarkable. The intracranial flow voids are maintained. IMPRESSION: No acute intracranial abnormality seen. No evidence for acute infarct.
[2025-05-28] MEDS: ENOXAPARIN SOD 40 MG/0.4 ML SYRINGE SC SCH (09:49)
[2025-05-28] MEDS: LISINOPRIL 5 MG TAB PO SCH (09:50)
[2025-05-28] MEDS ORDERED: MECL-90 PO (11:49)
[2025-05-28 12:08] VITALS: BP 129/69; PULSE 66; RESP 18; TEMP 98.5; O2SAT 97
--- NOTE | 2025-05-29 09:45 | ECG ---
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
== END 2025-05-28 12:34 | disposition home or self-care (01) | DRG 103 ==
LOC: ER 12:22 → OVERFLOW 17:19
PROVIDERS: ADMIT Hospitalist; ATTEND Hospitalist
DX: G43.909 Migraine, unspecified, not intractable, without status migrainosus (principal); G90.89 Other disorders of autonomic nervous system; I10 Essential (primary) hypertension; D32.9 Benign neoplasm of meninges, unspecified; G51.0 Bell's palsy; I25.2 Old myocardial infarction; Z86.73 Personal history of transient ischemic attack (TIA), and cerebral infarction without residual deficits; Z88.5 Allergy status to narcotic agent; Z79.1 Long term (current) use of non-steroidal anti-inflammatories (NSAID); Z79.899 Other long term (current) drug therapy
CPT/HCPCS: 36415; 70450; 70551; 80048; 80053; 80061; 83735; 85025; 93005; G0378; J1885